=== PATIENT | male | born 1995 | race Hispanic/Latino ===

== ENCOUNTER 2017-02-05 09:37 | Outpatient (CLI) | payer BC ==
--- NOTE | 2017-02-05 11:08 | RAD ---
THREE VIEWS RIGHT FOOT: Comparison: None. History: Right foot pain for 10 days along the arch of the foot. FINDINGS: Three views of the right foot shows no evidence of acute fracture or dislocation. No soft tissue swel ling is seen. No degenerative changes are present. IMPRESSION: No evidence of acute osseous abnormality. POS: [facility]
== END 2017-02-05 09:38 | disposition home or self-care (01) ==
LOC: SCSRAD 09:37
PROVIDERS: ATTEND Family Medicine
DX: M79.671 Pain in right foot (principal)